=== PATIENT | female | born 1985 | race Caucasian/White ===

== ENCOUNTER 2017-09-03 16:08 | Observation (INO) | payer SELFPAY ==
[~2017-09-03] VITALS: Ht 167.6 cm; Wt 99.8 kg
[~2017-09-03 16:08] MED LIST: Cleocin HCl300 MG PO; PENVK250 PO
[2017-09-03 16:38] LABS: BASOPHILS ABSOLUTE AUTO 0.06 K/mm3 (0.00-0.23); BASOPHILS PERCENT AUTO 1 % (0-2); EOSINOPHILS ABSOLUTE AUTO 0.11 K/mm3 (0.00-0.68); EOSINOPHILS PERCENT AUTO 1 % (0-6); Hematocrit 41.5 % (33.0-51.0); IMMATURE GRAN ABSOLUTE AUTO 0.03 K/mm3 (0.00-0.10); IMMATURE GRAN PERCENT AUTO 0 % (0-1); LYMPHOCYTES ABSOLUTE AUTO 2.47 K/mm3 (0.84-5.20); LYMPHOCYTES PERCENT AUTO 20 % (21-46); MONOCYTES ABSOLUTE AUTO 0.59 K/mm3 (0.16-1.47); MONOCYTES PERCENT AUTO 5 % (4-13); Mean Corpuscular HGB Conc 33.7 g/dL (31.5-36.5); Mean Corpuscular Volume 92 fL (80-100); Mean Platelet Volume 10.1 fL (9.1-12.4); NEUTROPHILS ABSOLUTE AUTO 8.97 K/mm3 (1.96-9.15); NEUTROPHILS PERCENT AUTO 73 % (41-73); Platelet Count 293 K/mm3 (150-400); RDW Coefficient Variation 11.9 % (11.7-14.2); RDW Standard Deviation 39.9 fL (35.1-46.3); Red Blood Cell Count 4.52 M/mm3 (3.80-5.20); White Blood Cell Count 12.23 K/mm3 (4.00-11.30)
[2017-09-03 16:47] LABS: Appearance, Urine Cloudy (Clear); Bilirubin, Urine Neg (Neg); Blood, Urine 1+ (Neg); Color, Urine Yellow (P-Yellow); Glucose Qualitative, Urine Neg (Neg); Ketones, Urine Neg (Neg); Leukocyte Esterase, Urine 2+ (Neg); Nitrite, Urine Neg (Neg); Protein, Urine Neg (Neg); Urobilinogen, Urine NORM (Normal)
[2017-09-03 16:59] LABS: Ethanol (Alcohol), Blood, Med <3 mg/dL; Salicylate 1.9 mg/dL (2.8-20.0)
[2017-09-03 16:59] LABS: U Amphetamine Screen Not Detected; U Barbituate Screen Not Detected; U Benzodiazapine Screen Not Detected; U Buprenorphine Screen Not Detected; U Cannabinoids Screen Not Detected; U Cocaine Screen Not Detected; U Methadone Screen Not Detected; U Methamphetamine Screen Not Detected; U Opiates Screen Not Detected; U Oxycodone Screen Not Detected; U Phencyclidine Screen Not Detected; U Propoxyphene Screen Not Detected
[2017-09-03 17:00] LABS: Alanine Aminotransfer (ALT/SGP 38 U/L (12-78); Albumin, Blood 3.8 g/dL (3.4-5.0); Alk Phos 103 U/L (50-136); Anion Gap 9 mmol/L (6-16); Aspartate Aminotrans (AST/SGOT 19 U/L (12-37); Bilirubin, Total 0.4 mg/dL (0.1-1.0); Blood Urea Nitrogen 14 mg/dL (8-24); Bun/Creatinine Ratio 16.2 (12.0-20.0); CO2, Blood 26 mmol/L (21-32); Calcium, Blood 9.1 mg/dL (8.5-10.1); Chloride, Blood 106 mmol/L (98-108); Creatinine, Blood 0.86 mg/dL (0.40-1.00); Globulin, Blood 3.9 g/dL (2.2-4.0); Glomerular Filtration Rate >60 (60-); Glucose, Blood 96 mg/dL (70-99); Sodium, Blood 141 mmol/L (136-145); Thyroxine (T4) 6.6 ug/dL (4.8-13.9); Total Protein, Blood 7.7 g/dL (6.4-8.2)
[2017-09-03 17:04] LABS: Amorphous Heavy (0-Heavy); Bacteria Not Seen /hpf; Red Blood Cells, Urine 0-2 /hpf (0-2); Squamous Epithelial Cells Many /hpf (Few)
[2017-09-03 17:07] LABS: Acetaminophen, Random <2.0 ug/mL (10.0-30.0)
== END 2017-09-04 10:47 | disposition home or self-care (01) ==
LOC: ER 16:08 → EOR 16:09
PROVIDERS: Emergency Medicine
DX: T50.902A Poisoning by unspecified drugs, medicaments and biological substances, intentional self-harm, initial encounter (principal); F32.9 Major depressive disorder, single episode, unspecified; F41.9 Anxiety disorder, unspecified; F17.210 Nicotine dependence, cigarettes, uncomplicated
CPT/HCPCS: 36415; 80053; 81001; 81025; 84436; 84443; 85025; 87086; 99285; G0378; G0480; Q3014

== ENCOUNTER 2021-05-10 15:30 | Inpatient (IN) | payer OTHER, BC ==
[~2021-05-10] VITALS: Ht 170.2 cm; Wt 108.9 kg
[~2021-05-10 15:30] MED LIST changes: +IBUP800 PO; +ONDA4ODT MM; +Percocet 5-3251 EACH PO
[2021-05-10 17:37] LABS: BASOPHILS ABSOLUTE AUTO 0.09 K/mm3 (0.00-0.23); BASOPHILS PERCENT AUTO 1 % (0-2); EOSINOPHILS ABSOLUTE AUTO 0.26 K/mm3 (0.00-0.68); EOSINOPHILS PERCENT AUTO 2 % (0-6); Hematocrit 41.7 % (33.0-51.0); Hemoglobin 13.6 g/dL (11.5-16.0); IMMATURE GRAN ABSOLUTE AUTO 0.09 K/mm3 (0.00-0.10); IMMATURE GRAN PERCENT AUTO 1 % (0-1); LYMPHOCYTES ABSOLUTE AUTO 2.14 K/mm3 (0.84-5.20); LYMPHOCYTES PERCENT AUTO 17 % (21-46); MONOCYTES ABSOLUTE AUTO 0.73 K/mm3 (0.16-1.47); MONOCYTES PERCENT AUTO 6 % (4-13); Mean Corpuscular HGB 30.4 pg (26.0-34.0); Mean Corpuscular HGB Conc 32.6 g/dL (31.5-36.5); Mean Corpuscular Volume 93 fL (80-100); Mean Platelet Volume 10.7 fL (9.1-12.4); NEUTROPHILS ABSOLUTE AUTO 9.19 K/mm3 (1.96-9.15); NEUTROPHILS PERCENT AUTO 74 % (41-73); Platelet Count 252 K/mm3 (150-400); RDW Coefficient Variation 12.6 % (11.7-14.2); RDW Standard Deviation 43.2 fL (35.1-46.3); Red Blood Cell Count 4.48 M/mm3 (3.80-5.20)
[2021-05-10 17:57] LABS: Alanine Aminotransfer (ALT/SGP 85 U/L (12-78); Albumin, Blood 3.5 g/dL (3.4-5.0); Alk Phos 80 U/L (50-136); Anion Gap 5 mmol/L (6-16); Aspartate Aminotrans (AST/SGOT 55 U/L (12-37); Bilirubin, Total 0.9 mg/dL (0.1-1.0); Blood Urea Nitrogen 20 mg/dL (8-24); Bun/Creatinine Ratio 21.8 (12.0-20.0); CO2, Blood 28 mmol/L (21-32); Calcium, Blood 9.2 mg/dL (8.5-10.1); Chloride, Blood 108 mmol/L (98-108); Creatinine, Blood 0.92 mg/dL (0.40-1.00); Globulin, Blood 3.6 g/dL (2.2-4.0); Glomerular Filtration Rate >60 (60-); Glucose, Blood 104 mg/dL (70-99); Potassium, Blood 4.1 mmol/L (3.5-5.5); Sodium, Blood 141 mmol/L (136-145); Total Protein, Blood 7.1 g/dL (6.4-8.2)
[2021-05-10 17:58] LABS: Source, Urine Catheter
[2021-05-10 18:05] LABS: Appearance, Urine Hazy (Clear); Bilirubin, Urine Neg (Neg); Blood, Urine 3+ (Neg); Color, Urine Amber (P-Yellow); Glucose Qualitative, Urine Neg (Neg); Ketones, Urine 1+ (Neg); Leukocyte Esterase, Urine 2+ (Neg); Nitrite, Urine Neg (Neg); Protein, Urine 2+ (Neg); Urobilinogen, Urine NORM (Normal)
[2021-05-10 18:11] LABS: Amorphous Light (0-Heavy); Bacteria Many /hpf; Granular Casts 0-2 /lpf (0); Hyaline Casts 0-2 /lpf (0-2); Squamous Epithelial Cells Few /hpf (Few)
[2021-05-10 18:44] LABS: Influenza A, PCR NEGATIVE (NEGATIVE); Influenza B, PCR NEGATIVE (NEGATIVE); Resp Syncytial Virus, PCR NEGATIVE (NEGATIVE); SARS-Cov-2 (COVID-19) PCR, MMC NEGATIVE (NEGATIVE)
[2021-05-11 04:32] LABS: BASOPHILS ABSOLUTE AUTO 0.09 K/mm3 (0.00-0.23); BASOPHILS PERCENT AUTO 1 % (0-2); EOSINOPHILS ABSOLUTE AUTO 0.25 K/mm3 (0.00-0.68); EOSINOPHILS PERCENT AUTO 2 % (0-6); Hematocrit 37.6 % (33.0-51.0); Hemoglobin 11.9 g/dL (11.5-16.0); IMMATURE GRAN ABSOLUTE AUTO 0.07 K/mm3 (0.00-0.10); IMMATURE GRAN PERCENT AUTO 1 % (0-1); LYMPHOCYTES ABSOLUTE AUTO 2.86 K/mm3 (0.84-5.20); LYMPHOCYTES PERCENT AUTO 26 % (21-46); MONOCYTES ABSOLUTE AUTO 0.78 K/mm3 (0.16-1.47); MONOCYTES PERCENT AUTO 7 % (4-13); Mean Corpuscular HGB 30.7 pg (26.0-34.0); Mean Corpuscular HGB Conc 31.6 g/dL (31.5-36.5); Mean Corpuscular Volume 97 fL (80-100); Mean Platelet Volume 10.8 fL (9.1-12.4); NEUTROPHILS ABSOLUTE AUTO 6.98 K/mm3 (1.96-9.15); NEUTROPHILS PERCENT AUTO 63 % (41-73); Platelet Count 210 K/mm3 (150-400); RDW Coefficient Variation 12.8 % (11.7-14.2); RDW Standard Deviation 45.3 fL (35.1-46.3); Red Blood Cell Count 3.88 M/mm3 (3.80-5.20); White Blood Cell Count 11.03 K/mm3 (4.00-11.30)
[2021-05-11 05:05] LABS: Alanine Aminotransfer (ALT/SGP 64 U/L (12-78); Albumin, Blood 2.7 g/dL (3.4-5.0); Albumin/Globulin Ratio 0.8 (0.8-1.8); Alk Phos 63 U/L (50-136); Anion Gap 5 mmol/L (6-16); Aspartate Aminotrans (AST/SGOT 35 U/L (12-37); Bilirubin, Total 0.6 mg/dL (0.1-1.0); Blood Urea Nitrogen 17 mg/dL (8-24); Bun/Creatinine Ratio 18.2 (12.0-20.0); CO2, Blood 28 mmol/L (21-32); Calcium, Blood 8.7 mg/dL (8.5-10.1); Chloride, Blood 109 mmol/L (98-108); Creatinine, Blood 0.93 mg/dL (0.40-1.00); Globulin, Blood 3.3 g/dL (2.2-4.0); Glomerular Filtration Rate >60 (60-); Glucose, Blood 127 mg/dL (70-99); Sodium, Blood 142 mmol/L (136-145)
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
--- NOTE | 2021-05-11 09:58 | NUR ---
DR VAZQUEZ IN TO SEE PT.
--- NOTE | 2021-05-11 10:57 | NUR ---
WORKED W/THERAPY UNABLE TO GET OOB. MEDICATED PER ORDERS W/TYLENOL FOR 7/10 PELVIC PAIN.
--- NOTE | 2021-05-11 15:52 | NUR ---
URINE URINE VERY CLOUDY--APPEARS PURULENT AND TO POSSIBLY HAVE BLOOD PRESENT. ONLY APPROXIMATELY 300 MLS OUT SO FAR THIS SHIFT. DISCUSSED W/DR VZAQUEZ, ORDERS OBTAINED FOR 1L NS @ 150 MLS PER HOUR. IV FLUIDS INFUSING NOW PER ORDERS.
--- NOTE | 2021-05-11 16:59 | NUR ---
SUMMARY PT PAINFUL T/O SHIFT. MEDICATED PER ORDERS FOR PAIN. PT WORKED W/THERAPY THIS AM BUT WAS UNABLE TO GET OOB. MICHAEL DRAINING PURULENT AND BLOODY URINE. ORDERS OBTAINED FOR ADD'L 1L OF NS WHICH IS INFUSING AT THIS TIME. PT TOLERATING PO. CALL LIGHT IN REACH.
--- NOTE | 2021-05-11 19:00 | NUR ---
REPORT GIVEN TO ONCOMING RN
--- NOTE | 2021-05-12 03:40 | NUR ---
SHIFT SUMMARY A/O X4. VSS. PAIN BEING MANAGED PER EMAR. BEDREST THIS SHIFT. MICHAEL TO GRAVITY, DRAINING CHARLENE COLORED URINE WITH REDDISH TINT. DANIEL TO L WRIST AND SPLINT TO L ANKLE. WILL CONTINUE TO MONITOR AND REPORT TO ONCOMING RN.
--- NOTE | 2021-05-12 17:54 | NUR ---
PATIENT CURRENTLY SITTING UP IN CHAIR EATING DINNER. NO SIGNS OR SYMPTOMS ACUTE DISTRESS NOTED AT THIS TIME. CALL LIGHT AND WATER IN EASY REACH. ABLE TO MAKE NEEDS AND WANTS KNOWN. PATIENT WORKED WITH PT/OT TODAY. MEDICATED FOR PAIN PER ORDERS SEE EMAR. ROOM AIR. AAOX4. WILL MONITOR.
--- NOTE | 2021-05-13 05:44 | NUR ---
PT IS ON RECLINING CHAIR WHERE SHE SLEEPS, HER CONDITION IS STABLE. SHE IS ASLERT AND ORIENTED, MEDICATED FOR PAIN INDICATED. SHE IS ASSISTED WITH HER CARE AND ADLS, ASSISTED WITH BATHROOM AND TOILETING NEEDS. HER CALL LIGHT WAS GIVEN TO HER AND WAS REMINDED TO CALL FOR HELP WHEN ASSISTANCE IS NEEDED SHE IS MONITORED.
--- NOTE | 2021-05-13 17:19 | NUR ---
PATIENT CURRENTLY SITTING UP IN CHAIR AT BEDSIDE WITH NO SIGNS OR SYMPTOMS ACUTE DISTRESS NOTED. CALL LIGHT AND WATER IN EASY REACH. ABLE TO MAKE NEEDS AND WANTS KNOWN. PATIENT MEDICATED FOR PAIN TODAY PER ORDERS. SEE EMAR. PATIENT WORKED WITH PT AND OT TODAY AND DID WELL. DEMI PETER.
--- NOTE | 2021-05-14 06:27 | NUR ---
PT IN BED WHERE SHE REMAINS DURING THE NIGHT. BEING TREATED FOR PELVIC AND LLE PAIN. SHE IS ALERT AND ORIENTED, ASSISTED WITH CARE AND ADLS AND MEDICATED INDICATED. PT ENCOURAGED TO CALL FOR HELP WHEN ASSISTANCE IS NEEDED SHE IS MONITORED.
--- NOTE | 2021-05-14 17:55 | NUR ---
PATIENT UP IN CHAIR AT THIS TIME EATING MEAL. NO SING SOR SYMPTOMS ACUTE DISTRESS NOTED. CALL LIGHT AND WATER IN EASY REACH. ABLE TO MAKE NEEDS AND WANTS KNOWN. PATIENT UP TO BEDSIDE COMMODE AFTER MICHAEL CATH REMOVED TO TRY TO HAVE A BOWEL MOVEMENT, NO SUCCESS BUT IS PASSING FLATUS. PAIN MEDS ADJUSTED TODAY PER DR VAZQUEZ. PATIENT INSTRUCTED TO USED LESS IV PAIN MEDS AND MORE PO PAIN MEDS TO MAKE SURE THEY WILL WORK FOR THE PAIN WHEN PATIENT DISCHARGES. PATIENT HAS AREA ON HER BUTTOCKS THAT IS RED, IT SEEMS TO BE MOISTURE RELATED, APPLIED MEPILEX BORDER FOAM TO PROTECT AREA AT THIS TIME. WILL MONITOR.
--- NOTE | 2021-05-15 04:11 | NUR ---
PT IS IN BED AT THIS TIME WHERE SHE REMAINS DURING THE NIGHT AND IS RESTING COMFORTABLY WITH EYES CLOSED, CONDITION IS STABLE. HAS C/O PAIN AND TREATED ACCORDINGLY. SHE IS ALERT AND ORIENTED, ASSISTED WITH CARE AND ADLS, ASSISTED WITH BATHROOM AND TOILETING NEEDS, ENCOURAGED TO PERFORM LEG EXERCISES WHILE IN BED TO PROMOTE VENOUS RETURN. HER CALL LIGHT WAS PLACED NEAR HER, ANSWERED, AND ENCOURAGED TO CALL FOR HELP WHEN ASSISTANCE IS NEEDED SHE IS MONITORED.
--- NOTE | 2021-05-15 18:32 | NUR ---
PATIENT CURRENTLY SITTING UP IN CHAIR TALKING ON PHONE AND EATING DINNER. PATIENT HAD A BM TODAY. NO SIGNS OR SYMPTOMS ACUTE DISTRESS NOTED. CALL LIGHT AND WATER IN EASY REACH. ABLE TO MAKE NEEDS AND WANTS KNOWN. WILL MONITOR.
--- NOTE | 2021-05-16 04:26 | NUR ---
Pt is up on her chair in her room at this time and is resting quietly. Stated that she wanted to get up out of bed and was assisted by nursing staff in getting on her chair, but was in bed much of the night. Is alert, awake, and oriented, condition is stable. Has c/o pain and was medicated PRN for pain as indicated, no other complaints. Assisted with care and ADLs, assisted with bathroom and toileting needs. She is encouraged to practice breathing exercises to promote respiratory function and air exchange as patient is less mobile at this time. She is also encouraged to perform leg exercises while in bed or up on her chair to promote circulatory function and venous return especially in the lower extremities. Her call light was placed near her and was encouraged to call for help when assistance is needed as she is monitored.
--- NOTE | 2021-05-16 16:43 | NUR ---
SHIFT SUMMARY PATIENT ALERT AND ORIENTED WHEN AWAKE. TOOK FREQUENT NAPS THIS SHIFT. MEDICATED FOR PAIN PER EMAR. TOLERATING REGULAR DIET AND FLUIDS. SALINE LOCKED. VOIDING WELL. SBA WITH FWW TO COMMODE AND CHAIR. WALKED IN PACK WITH PHYSICAL THERAPY. TTWB TO LEFT FOOT. PLAN TO DISCHARGE TO SNF WHEN BED AVAILABLE. WILL REPORT TO WIRE DRAWING DIE MAKER RN.
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
--- NOTE | 2021-05-17 18:20 | NUR ---
PT HAS BEEN STABLE THIS SHIFT. PAIN TOLERABLE WITH PRN MEDS. PT WORKED WELL WITH THERAPY AND STAFF TO AMBULATE. PT HAD SHOWER THIS AFTERNOON. ANDRE DIET WELL. VOIDING ON COMMODE. PT GIVEN MIRILAX FOR CONSTIPATION. ABX STOPPED FOR UTI. NO URINARY SYMPTOMS. PT AWAITING PLACEMENT AT THE [facility]. CALL APPROPRIATELY NEEDED.
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
--- NOTE | 2021-05-18 18:26 | NUR ---
PATIENT HAD A GOOD DAY TODAY. PATIENT CURRENTLY SITTING UP IN CHAIR EATING HER MEAL. NO SIGNS OR SYMPTOMS ACUTE DISTRESS NOTED. CALL LIGHT AND WATER IN EASY REACH. ABLE TO MAKE NEEDS AND WANTS KNOWN. PATIENT WORKED WITH PT TODAY AND WALKED IN PACK WITH WALKER. PATIENT HAS BEEN WALKING TO THE BATHROOM WELL. MEDICATED FOR PAIN AND ANXIETY PER ORDERS SEE ABE. DEMI PETER.
--- NOTE | 2021-05-19 05:55 | NUR ---
SHIFT SUMMARY NO ACUTE CHANGES OVERNIGHT. PT REPORTS SOME ANXIETY, MEDICATED WITH ATARAX X2 T/O SHIFT, ONE AT NIGHT BEFORE SLEEP AND THIS MORNING. PT REPORTS MOD PAIN, 5-6/10 PAIN LEVEL. PAIN MANAGED WITH OXY AND TYLENOL. AMBULATES IN THE BRP WITH 1 SBA, GB AND FWW. TTWB ON LLE. VSS. DENIES CP AND SOB. ANDRE PO INTAKE DENIES N/V. VOIDING ADEQUATELY. PLAN: WAITING FOR PLACEMENT (REHAB). WILL PROVIDE REPORT TO ONCOMING NURSE.
--- NOTE | 2021-05-19 09:05 | NUR ---
ASSUMED CARE OF PATIENT THIS AM. PATIENT LYING IN BED WITH NO SIGNS OR SYMPTOMS ACUTE DISTRESS NOTED. CALL LIGHT AND WATER IN EASY REACH. WILL MEDICATE FOR PAIN PER ORDERS. WILL MONITOR.
--- NOTE | 2021-05-19 17:32 | NUR ---
PATIENT CURRENTLY SITTING UP IN CHAIR EATING HER DINNER. NO SIGNS OR SYMPTOMS ACUTE DISTRESS NOTED. CALL LIGHT AND WATER IN EASY REACH. ABLE TO MAKE NEEDS AND WANTS KNOWN. PATIENT MEDICATED FOR PAIN PER ORDERS SEE EMAR. PATIENT WORKED WITH THERAPY TODAY. CONTINUE TO WAIT FOR BED AVAILABLE FOR DC AT A REHAB. WILL CONTINUE TO MONITOR.
[2021-05-20 04:17] LABS: Hematocrit 37.7 % (33.0-51.0); Hemoglobin 12.1 g/dL (11.5-16.0); Mean Corpuscular HGB 30.5 pg (26.0-34.0); Mean Corpuscular HGB Conc 32.1 g/dL (31.5-36.5); Mean Corpuscular Volume 95 fL (80-100); Mean Platelet Volume 10.4 fL (9.1-12.4); Platelet Count 317 K/mm3 (150-400); RDW Coefficient Variation 12.2 % (11.7-14.2); RDW Standard Deviation 42.6 fL (35.1-46.3); Red Blood Cell Count 3.97 M/mm3 (3.80-5.20); White Blood Cell Count 8.63 K/mm3 (4.00-11.30)
[2021-05-20 05:17] LABS: Albumin, Blood 3.1 g/dL (3.4-5.0); Anion Gap 5 mmol/L (6-16); Blood Urea Nitrogen 15 mg/dL (8-24); Bun/Creatinine Ratio 19.8 (12.0-20.0); CO2, Blood 29 mmol/L (21-32); Chloride, Blood 107 mmol/L (98-108); Creatinine, Blood 0.76 mg/dL (0.40-1.00); Glomerular Filtration Rate >60 (60-); Glucose, Blood 105 mg/dL (70-99); Phosphorus, Blood 3.8 mg/dL (2.5-4.9); Potassium, Blood 4.7 mmol/L (3.5-5.5); Sodium, Blood 141 mmol/L (136-145)
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
--- NOTE | 2021-05-20 18:04 | NUR ---
PATIENT CURRENTLY SITTING UP IN CHAIR WITH NO SIGNS OR SYMPTOMS ACUTE DISTRESS NOTED. CALL LIGHT AND WATER IN EASY REACH. ABLE TO MAKE NEEDS AND WANTS KNOWN. PATIENT WAS SUPPOSE TO DC TODAY BUT THE BED WAS NOT AVAILABLE, MAY BE AVAILABLE TOMORROW. MEDICATED FOR PAIN PER ORDERS SEE EMAR. WILL MONITOR.
--- NOTE | 2021-05-21 04:41 | NUR ---
MEDICATED WITH ROXICODONE ATC FOR PAIN MANAGEMENT WITH EFFECTIVE RELIEF. AMBULATED WITH STAND BY ASSIST WITH WALKER. NO ACUTE DISTRESS NOTED, SITTING UP IN RECLINER WATCHING TV. BRACE TO LEFT ANKLE, REMAINS TTWB. SAFETY MAINTAINED, CALL MOSQUERA IN REACH.
--- NOTE | 2021-05-21 18:26 | NUR ---
PATIENT HAD A GOOD DAY TODAY. NO SIGNS OR SYMPTOMS ACUTE DISTRESS NOTED. CALL LIGHT AND WATER IN EASY REACH. ABLE TO MAKE NEEDS AND WANTS KNOWN. MEDICATED FOR PAIN PER ORDERS SEE EMAR. PATIENT TOOK SHOWER TODAY WITH MIN ASSIST. WILL MONITOR.
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
--- NOTE | 2021-05-22 09:31 | NUR ---
PATIENT UP TO BATHROOM WITH WALKER/LEFT ARM SUPPORT. VOID AND THEN UP TO CHAIR. TOLERATE WELL AND EATING BREAKFAST. STATES PAIN IS 6/10 IN LEFT LEG, 10 MG OXY GIVEN PER PRN ORDER.
--- NOTE | 2021-05-22 10:21 | NUR ---
CALL TO DR. KATZ OFFICE PER DR. DUGGAN REQUEST, FOR XRAY ORDERS NEEDED. AT THIS TIME RECIEVED ORDER PER DR. KATZ FOR ONE VIEW PELVIS.
--- NOTE | 2021-05-22 11:01 | NUR ---
MESSAGE LEFT FOR FRANDY FRANCOIS TO CHECK ON STATUS FOR PLACEMENT
--- NOTE | 2021-05-22 15:55 | NUR ---
PATIENT UP WITH PT/OT TODAY, AMBULATE IN PACK USING HER WALKER AND LLE TOE TOUCH WT BEARING. TOLERATE WELL WITH OXYCODONE PER ORDER ON BOARD. DID DISCUSS NEED FOR STOOL SOFTNER WHEN TAKING NARCOTICS, VERBALIZE UNDERSTANDING. PATIENT STATES SHE HAD BM YESTERDAY.
--- NOTE | 2021-05-23 05:22 | NUR ---
INCREASED PAIN THROUGH NIGHT DUE TO INCREASED WALKING THROUGH DAY. MEDICATED WITH ROXICODONE Q4HRS FOR PAIN MANAGEMENT, EFFECTIVE RELIEF. NO ACUTE DISTRESS NOTED, RESPIRATIONS EVEN AND UNLABORED. SAFETY MAINTAINED WITH CALL MOSQUERA IN REACH.
[2021-05-23 10:24] LABS: Influenza A, PCR NEGATIVE (NEGATIVE); Influenza B, PCR NEGATIVE (NEGATIVE); Resp Syncytial Virus, PCR NEGATIVE (NEGATIVE); SARS-Cov-2 (COVID-19) PCR, MMC NEGATIVE (NEGATIVE)
--- NOTE | 2021-05-23 11:31 | NUR ---
REPORT CALLED TO NORBERTO DEWITT AT [facility] IN [place].
--- NOTE | 2021-05-23 12:07 | NUR ---
PATIENT DISCHARGED AT THIS TIME. MOTHER HERE TO TAKE HER TO [facility]. PERSONAL BELONGINGS PACKED AND PACKET SENT WITH PT. INCLUDING PRESCRIPTIONS FOR ATARAX AND PERCOCET. W/C TO EXIT.
== END 2021-05-23 12:07 | DRG 552 ==
LOC: ER 15:30 → SURS 23:33
PROVIDERS: Emergency Medicine; Internal Medicine; ADMIT Internal Medicine
PROC: 2W3DX1Z Immobilization of Left Lower Arm using Splint (ICD-10-PCS; principal; 2021-05-10)
PROC: 2W3TX1Z Immobilization of Left Foot using Splint (ICD-10-PCS; 2021-05-10)
DX: S32.058A Other fracture of fifth lumbar vertebra, initial encounter for closed fracture (principal); S32.810A Multiple fractures of pelvis with stable disruption of pelvic ring, initial encounter for closed fracture; S32.10XA Unspecified fracture of sacrum, initial encounter for closed fracture; N39.0 Urinary tract infection, site not specified; S32.048A Other fracture of fourth lumbar vertebra, initial encounter for closed fracture; B96.20 Unspecified Escherichia coli [E. coli] as the cause of diseases classified elsewhere; Z53.20 Procedure and treatment not carried out because of patient's decision for unspecified reasons; Z20.822 Contact with and (suspected) exposure to COVID-19; E66.9 Obesity, unspecified; S92.142A Displaced dome fracture of left talus, initial encounter for closed fracture; S62.115A Nondisplaced fracture of triquetrum [cuneiform] bone, left wrist, initial encounter for closed fracture; Z68.37 Body mass index [BMI] 37.0-37.9, adult; Z87.891 Personal history of nicotine dependence; Z79.899 Other long term (current) drug therapy; V89.2XXA Person injured in unspecified motor-vehicle accident, traffic, initial encounter; Y92.410 Unspecified street and highway as the place of occurrence of the external cause
CPT/HCPCS: 0241U; 29125; 29515; 36415; 51702; 72170; 73110; 73610; 80053; 80069; 81001; 85025; 85027; 87077; 87086; 87186; 96374; 96375; 96376; 97110; 97112; 97116; 97162; 97166; 97530; 97530-CQ; 97535; 99285-25; A9270; J0696; J1170; J1650; J1885; J2270; J2405; J7030

== ENCOUNTER → 2022-03-19 | Outpatient (CLI) | payer OTHER | LOC: LAB SHORT 10:31 → PLD 10:31 | DX: N85.8 Other specified noninflammatory disorders of uterus (principal) | CPT/HCPCS: 88305 ==